=== PATIENT | male | born 1930 | race Caucasian/White ===

== ENCOUNTER → 2016-09-27 | Outpatient (CLI) | payer MEDICARE ==
[~2016-09-27] MED LIST: /HCTZ25TA PO; ASPI81TA83 PO; ASTEPRO; ATOR1TAB21 PO; CARTIA XT PO; CLIN150C OR; CRES5TAB PO; DIOV160T5 PO; LOSA100T36 PO; MULTTAB50 PO; NORV5TAB OR; OCEAN NASAL SPRAY; OMEP20TA7 PO; SING10TA31 PO; VICO5TAB PO; VITACAP31 PO; ZITH250T PO; ocuvite PO
--- NOTE | 2016-09-27 20:31 | REP ---
CHEST, PA AND LATERAL: 09/27/2016. Comparison: 08/02/2016. Clinical history: Gastroesophageal reflux disease without esophagitis, increased dyspnea for about a week. Findings: The two views show the lungs mildly hyperinflated but without pleural effusion or acute infiltrate. There is minor lateral pleural thickening. No apical scarring or pneumothorax. Heart not grossly enlarged. Aorta is calcified at the arch, tortuous without aneurysm. Airway intact. No infiltrate, nodule or mass in the lung chou. Degenerative changes in the AC and glenohumeral joints as well as the spine with demineralization, but no interval change. Impression: 1. No cardiomegaly, edema or effusion but tortuous calcified aorta. No acute cardiopulmonary change. Stable exam. Signed by Aly Neff MD 09/27/2016 08:34 P
== END ==
LOC: M ADAMS 17:26
PROVIDERS: ATTEND Internal Medicine Pulmonary Disease
DX: K21.9 Gastro-esophageal reflux disease without esophagitis (principal)

== ENCOUNTER 2017-04-09 10:50 | Emergency (ER) | payer MEDICARE ==
[~2017-04-09] VITALS: Ht 170.2 cm; Wt 77.1 kg
[2017-04-09] MEDS ORDERED: MAGN64TASA PO (11:03)
[2017-04-09] MEDS ORDERED: METF750T PO (11:03)
[2017-04-09] MEDS ORDERED: NS 1,000 ML IV SCH (11:38)
[2017-04-09] MEDS ORDERED: MORPHINE 2 MG/ML 1ML SYRINGE IV ONE ×2 (11:45→14:00)
[2017-04-09 11:54] LABS: BASO % 0.8 % (0.0-1.0); EOS # 0.2 K/mm3 (0.0-0.50); EOS % 4.5 % (0.0-3.0); LARGE UNSTAINED CELL # 0.2 K/mm3 (0.0-0.4); LARGE UNSTAINED CELL % 2.7 % (0.0-4.0); LYMPH # 1.2 K/mm3 (1.5-4.5); LYMPH % 19.1 % (24.0-44.0); MEAN CORPUSCULAR HGB CONC 34.6 g/dl (32.0-36.5); MEAN CORPUSCULAR VOLUME 89.6 fl (80.0-96.0); MONO # 0.4 K/mm3 (0.0-0.8); MONO % 6.2 % (0.0-5.0); NEUTROPHILS # 3.7 K/mm3 (1.8-7.7); NEUTROPHILS % 66.6 % (36.0-66.0); PLATELET COUNT, AUTOMATED 210 k/mm3 (150-450); RED CELL DISTRIBUTION WIDTH 12.4 % (11.5-14.5); WHITE BLOOD COUNT 5.6 K/mm3 (4.0-10.0)
[2017-04-09 11:55] LABS: INR 0.94
[2017-04-09] MEDS ORDERED: ONDANSETRON 4MG/2ML VIAL (J2405) IV ONE (12:00)
[2017-04-09 12:01] LABS: ALBUMIN 3.6 GM/DL (3.2-5.2); ALBUMIN/GLOBULIN RATIO 0.97 (1.00-1.93); ALKALINE PHOSPHATASE 60 U/L (45-117); ALT/SGPT 21 U/L (12-78); AMYLASE 71 U/L (25-115); ANION GAP 8 MEQ/L (8-16); AST/SGOT 18 U/L (15-37); BILIRUBIN,DIRECT < 0.1 MG/DL (0.0-0.2); BILIRUBIN,TOTAL 0.3 MG/DL (0.2-1.0); BLOOD UREA NITROGEN 20 MG/DL (7-18); CALCIUM LEVEL 8.8 MG/DL (8.8-10.2); CARBON DIOXIDE LEVEL 25 MEQ/L (21-32); CHLORIDE LEVEL 108 MEQ/L (98-107); CREATININE FOR GFR 1.16 MG/DL (0.70-1.30); GLOMERULAR FILTRATION RATE > 60.0 (>35); GLUCOSE, FASTING 104 MG/DL (83-110); SODIUM LEVEL 141 MEQ/L (136-145); TOTAL PROTEIN 7.3 GM/DL (6.4-8.2)
--- NOTE | 2017-04-09 12:15 | REP ---
Clinical: Pain. Technique: AP, lateral, bilateral oblique and coned-down views of the lumbosacral spine. Comparison: 04/19/2011. Findings: Age-related osteopenia and advanced multilevel degenerative disc osteophyte complexes are appreciated and appear progressive when compared to prior examination. There is no evidence for acute fracture / compression injury or subluxation. Findings include endplate sclerosis, disc space narrowing, osteophytosis and hypertrophic facet changes. Impression: Osteopenia and advanced multilevel degenerative changes. No acute fracture / compression injury or subluxation. Signed by Erasto Akers MD 04/09/2017 12:07 P
--- NOTE | 2017-04-09 12:17 | REP ---
Clinical: Pain. Technique: AP view of the pelvis with neutral and frog lateral views of the right hip. Findings: Osteopenia and moderate degenerative changes to the bilateral hips noted. Findings include joint space narrowing, subchondral sclerosis to the acetabular roof with associated spurring and osteophyte formation. No obvious acute fracture dislocation. Impression: Osteopenia and moderate degenerative changes. No acute fracture dislocation. Signed by Erasto Akers MD 04/09/2017 12:08 P
--- NOTE | 2017-04-09 12:17 | REP ---
Clinical: Lower chest and abdominal pain. Technique: PA and lateral. Comparison: 01/18/2015. Findings: Mediastinum and cardiac silhouette are within normal limits and stable. Lung chou demonstrate chronic interstitial changes primarily involving the mid to lower lung zones with scattered calcified granulomata. Findings are stable. No acute consolidation, effusion, or pneumothorax. Skeletal structures demonstrate age-related osteopenia and degenerative change. Impression: Chronic stable changes. No acute cardiopulmonary process appreciated. Signed by Erasto Akers MD 04/09/2017 12:09 P
[2017-04-09] MEDS ORDERED: ISOVUE-370 76% 100ML VIAL (Q9967) As Ordered ONE (13:08)
--- NOTE | 2017-04-09 14:05 | REP ---
Clinical: Right flank pain. Technique: Axial contrast enhanced images from the lung bases to the pubic symphysis using 100 ml Isovue 370 intravenous contrast material with coronal and sagittal re-formations. Comparison: 12/28/2015. Findings: Lung bases demonstrate chronic interstitial changes with subpleural fibrosis and bronchiectasis. Visualized portions of the heart and pericardium demonstrate atherosclerotic changes without cardiomegaly, aortic aneurysm or pericardial effusion. Liver, spleen, pancreas, bilateral adrenal glands are normal. The patient is status post cholecystectomy. The kidneys demonstrate bilateral cysts measuring up to 3 cm in the right kidney and 6.8 cm in left kidney. There is no hydroureteronephrosis, nephroureterolithiasis or perinephric stranding. The enteric system demonstrates diffuse colonic and sigmoid diverticulosis without obvious acute diverticulitis. Pelvis demonstrates normal bladder and age appropriate prostate/seminal vesicles. No free air. No free fluid. No significant adenopathy. Atherosclerotic changes to the aorta and vasculature noted without aneurysm or dissection. Musculoskeletal structures demonstrate age-related degenerative changes without focal osseous abnormality. Impression: 1. Bilateral renal cysts (left greater than right). 2. Diffuse diverticulosis without acute diverticulitis. 3. No acute abdominopelvic pathology appreciated. Specifically no free air, free fluid, or adenopathy and no mass lesion. 4. Chronic changes as described above. Signed by Erasto Akers MD 04/09/2017 01:57 P
[2017-04-09 14:16] VITALS: BP 192/82
== END 2017-04-09 14:45 | disposition home or self-care (01) ==
LOC: M ED 10:50
DX: R10.31 Right lower quadrant pain (principal); M54.9 Dorsalgia, unspecified; E11.9 Type 2 diabetes mellitus without complications; I10 Essential (primary) hypertension; E78.9 Disorder of lipoprotein metabolism, unspecified; J32.9 Chronic sinusitis, unspecified; Z79.899 Other long term (current) drug therapy; Z79.82 Long term (current) use of aspirin; Z79.84 Long term (current) use of oral hypoglycemic drugs; Z88.8 Allergy status to other drugs, medicaments and biological substances; Z88.5 Allergy status to narcotic agent; Z88.0 Allergy status to penicillin; Z88.2 Allergy status to sulfonamides; Z91.018 Allergy to other foods
CPT/HCPCS: 36415; 71020; 72110; 73502; 74177; 80048; 80076; 81001; 82150; 83690; 85025; 85610; 85730; 87040; 87086; 93041; 96361; 96374; 96375; 96376; 99284; J2405; Q9967

== ENCOUNTER → 2017-04-26 | Outpatient (REF) | payer MEDICARE ==
[~2017-04-26] MED LIST changes: +MAGN64TASA PO; +METF750T PO
== END ==
LOC: M LAB REF 17:44
PROVIDERS: ATTEND Surgery
DX: C44.629 Squamous cell carcinoma of skin of left upper limb, including shoulder (principal)

== ENCOUNTER → 2018-02-05 | Outpatient (CLI) | payer MEDICARE ==
[~2018-02-05] MED LIST changes: -/HCTZ25TA PO; -ASPI81TA83 PO; -ASTEPRO; -ATOR1TAB21 PO; -CARTIA XT PO; -CLIN150C OR; +CONRAY-43 43% 50ML VIAL (Q9960) As Ordered; -CRES5TAB PO; -DIOV160T5 PO; +LIDOCAINE 1% MDV 20ML VIAL As Ordered; -LOSA100T36 PO; -MAGN64TASA PO; -METF750T PO; -MULTTAB50 PO; -NORV5TAB OR; -OCEAN NASAL SPRAY; -OMEP20TA7 PO; -SING10TA31 PO; +TRIAMCINOLONE ACETONIDE SUSP 40 MG/ML VIAL (J3301) As Ordered; -VICO5TAB PO; -VITACAP31 PO; -ZITH250T PO; -ocuvite PO
== END ==
LOC: M RADPRO 10:36
DX: M16.0 Bilateral primary osteoarthritis of hip (principal)
CPT/HCPCS: 20610

== ENCOUNTER 2018-05-01 13:11 | Emergency (ER) | payer MEDICARE ==
[2018-05-01] MEDS: NORCO, ANEXSIA 5/325MG TABLET (HYDROcodone/ACETAMINOPHEN) PO (15:16)
== END 2018-05-01 15:30 | disposition home or self-care (01) ==
LOC: M ED 13:11
DX: S46.811A Strain of other muscles, fascia and tendons at shoulder and upper arm level, right arm, initial encounter (principal); W11.XXXA Fall on and from ladder, initial encounter; Y92.098 Other place in other non-institutional residence as the place of occurrence of the external cause; I10 Essential (primary) hypertension; E78.5 Hyperlipidemia, unspecified; E11.9 Type 2 diabetes mellitus without complications; Z88.8 Allergy status to other drugs, medicaments and biological substances; Z88.5 Allergy status to narcotic agent; Z88.0 Allergy status to penicillin; Z91.018 Allergy to other foods; Z88.2 Allergy status to sulfonamides; Z79.899 Other long term (current) drug therapy; Z79.82 Long term (current) use of aspirin; Z79.84 Long term (current) use of oral hypoglycemic drugs
CPT/HCPCS: 73030

== ENCOUNTER 2018-12-01 20:20 | Emergency (ER) | payer MEDICARE ==
[~2018-12-01] VITALS: Ht 167.6 cm; Wt 75.9 kg
[~2018-12-01 20:20] MED LIST changes: +ASPI81TA83 PO; +ASTEPRO; +ATOR1TAB21 PO; +CARTIA XT PO; +CLIN150C OR; -CONRAY-43 43% 50ML VIAL (Q9960) As Ordered; +CRES5TAB PO; +DIOV160T5 PO; +HYDR-3644 PO; +HYDR-3715 PO; -LIDOCAINE 1% MDV 20ML VIAL As Ordered; +LOSA100T36 PO; +MAGN64TASA PO; +METF750T PO; +MULTTAB50 PO; +NORV5TAB OR; +OCEAN NASAL SPRAY; +OMEP20TA7 PO; +SING10TA31 PO; -TRIAMCINOLONE ACETONIDE SUSP 40 MG/ML VIAL (J3301) As Ordered; +VICO5TAB PO; +VITACAP31 PO; +ZITH250T PO; +ocuvite PO
--- NOTE | 2018-12-01 22:01 | REPVR ---
EXAM: US Duplex Right Upper Extremity Veins, Limited EXAM DATE/TIME: 12/01/2018 9:29 PM CLINICAL HISTORY: 88 years old, male; Signs and symptoms; Edema, localized; Upper extremity, right; Prior surgery; Surgery date: <1 month; Surgery type: Shoulder replacement; Additional info: Swelling, recent surgery TECHNIQUE: Imaging protocol: Real-time Duplex ultrasound of the Right Upper Extremity with 2-D peck scale, color Doppler flow and spectral waveform analysis. Limited exam focused on the right upper extremity veins. COMPARISON: No relevant prior studies available. FINDINGS: Right deep veins: Unremarkable. Axillary and brachial veins are patent throughout without thrombus. Normal Doppler waveforms. Normal compressibility and/or augmentation response. Visualized internal jugular and subclavian veins are patent. A portion of the right subclavian vein was not visualized secondary to a dressing in place. Right superficial veins: Unremarkable. Visualized basilic veins are patent without thrombus. The right cephalic vein was obscured by a dressing. Soft tissues: Fluid is seen around the right shoulder. IMPRESSION: No evidence of deep vein thrombosis in the veins visualized in the right upper extremity. Electronically signed by: Neri Sinclair On 12/01/2018 22:00:51 PM
[2018-12-01] MEDS ORDERED: OXYC-517 (22:02)
[2018-12-01 22:30] VITALS: BP 142/62
== END 2018-12-01 22:41 | disposition home or self-care (01) ==
LOC: M ED 20:20
DX: R60.9 Edema, unspecified (principal); E11.9 Type 2 diabetes mellitus without complications; I10 Essential (primary) hypertension; Z79.899 Other long term (current) drug therapy; Z79.84 Long term (current) use of oral hypoglycemic drugs; Z79.82 Long term (current) use of aspirin; Z88.0 Allergy status to penicillin; Z88.1 Allergy status to other antibiotic agents; Z88.2 Allergy status to sulfonamides; Z88.8 Allergy status to other drugs, medicaments and biological substances; Z91.018 Allergy to other foods

== ENCOUNTER → 2019-03-17 | Outpatient (REF) | payer MEDICARE ==
[~2019-03-17] MED LIST changes: +OXYC-517
== END ==
LOC: M LAB REF 16:38
PROVIDERS: ATTEND Nurse Practitioner Family
DX: L08.9 Local infection of the skin and subcutaneous tissue, unspecified (principal)

== ENCOUNTER → 2019-04-13 | Outpatient (CLI) | payer MEDICARE ==
[~2019-04-13] MED LIST changes: -METF750T PO; +METF750T36 PO
--- NOTE | 2019-04-13 16:16 | REP ---
Clinical: Cough . Comparison: 04/09/2017 . Technique: PA and lateral. Findings: The mediastinum and cardiac silhouette are normal. The lung chou demonstrate chronic-appearing changes without acute consolidation, effusion, or pneumothorax. The skeletal structures are intact and normal. Impression: 1. No acute cardiopulmonary process. 2. Chronic-appearing changes. If the patient remains symptomatic consider chest CT for further investigation. Electronically Signed by Erasto Akers MD 04/13/2019 04:07 P
[2019-04-13 18:10] LABS: BASO # 0.1 10^3/uL (0.0-0.2); BASO % 0.3 % (0.0-1.0); EOS % 0.2 % (0.0-3.0); HEMATOCRIT 35.3 % (42.0-52.0); HEMOGLOBIN 11.4 g/dl (13.5-17.5); LYMPH # 1.8 10^3/uL (1.5-5.0); LYMPH % 10.4 % (24.0-44.0); MEAN CORPUSCULAR HEMOGLOBIN 29.2 pg (27.0-33.0); MEAN CORPUSCULAR HGB CONC 32.3 g/dl (32.0-36.5); MEAN CORPUSCULAR VOLUME 90.3 fl (80.0-96.0); MONO # 1.1 10^3/uL (0.0-0.8); MONO % 6.5 % (0.0-5.0); NEUTROPHILS # 14.3 10^3/uL (1.5-8.5); NEUTROPHILS % 82.1 % (36.0-66.0); PLATELET COUNT, AUTOMATED 253 10^3/uL (150-450); RED BLOOD COUNT 3.91 10^6/uL (4.30-6.10); WHITE BLOOD COUNT 17.4 10^3/uL (4.0-10.0)
[2019-04-13 18:15] LABS: ALBUMIN 3.3 GM/DL (3.2-5.2); BILIRUBIN,TOTAL 0.5 MG/DL (0.2-1.0); CALCIUM LEVEL 9.2 MG/DL (8.8-10.2); CREATININE FOR GFR 1.34 MG/DL (0.70-1.30); GLOMERULAR FILTRATION RATE 53.7 (>35); POTASSIUM SERUM 4.2 MEQ/L (3.5-5.1); TOTAL PROTEIN 6.3 GM/DL (6.4-8.2)
== END ==
LOC: M WUC 14:59
DX: R05 Cough (principal)

== ENCOUNTER → 2019-04-17 | Outpatient (CLI) | payer MEDICARE ==
[2019-04-17 16:50] LABS: BASO % 0.7 % (0.0-1.0); EOS # 0.2 10^3/uL (0.0-0.5); EOS % 3.9 % (0.0-3.0); HEMATOCRIT 35.3 % (42.0-52.0); HEMOGLOBIN 11.6 g/dl (13.5-17.5); LYMPH # 1.8 10^3/uL (1.5-5.0); LYMPH % 30.1 % (24.0-44.0); MEAN CORPUSCULAR HEMOGLOBIN 30.5 pg (27.0-33.0); MEAN CORPUSCULAR HGB CONC 32.9 g/dl (32.0-36.5); MEAN CORPUSCULAR VOLUME 92.9 fl (80.0-96.0); MONO # 0.6 10^3/uL (0.0-0.8); MONO % 10.3 % (0.0-5.0); NEUTROPHILS # 3.2 10^3/uL (1.5-8.5); NEUTROPHILS % 54.5 % (36.0-66.0); PLATELET COUNT, AUTOMATED 289 10^3/uL (150-450); WHITE BLOOD COUNT 5.9 10^3/uL (4.0-10.0)
[2019-04-17 16:56] LABS: ALBUMIN 3.4 GM/DL (3.2-5.2); ALT/SGPT 23 U/L (12-78); BILIRUBIN,TOTAL 0.4 MG/DL (0.2-1.0); BLOOD UREA NITROGEN 21 MG/DL (7-18); CALCIUM LEVEL 9.1 MG/DL (8.8-10.2); CARBON DIOXIDE LEVEL 25 MEQ/L (21-32); CHLORIDE LEVEL 103 MEQ/L (98-107); CREATININE FOR GFR 1.19 MG/DL (0.70-1.30); GLOMERULAR FILTRATION RATE > 60.0 (>35); GLUCOSE, FASTING 107 MG/DL (70-100); POTASSIUM SERUM 4.3 MEQ/L (3.5-5.1); SODIUM LEVEL 139 MEQ/L (136-145); TOTAL PROTEIN 6.8 GM/DL (6.4-8.2)
== END ==
LOC: M WUC 14:38
PROVIDERS: ATTEND Nurse Practitioner Family
DX: J01.90 Acute sinusitis, unspecified (principal)

== ENCOUNTER 2019-07-31 14:10 | Emergency (ER) | payer MEDICARE ==
[~2019-07-31] VITALS: Ht 157.5 cm; Wt 76.7 kg
[2019-07-31 15:14] LABS: BASO # 0.1 10^3/uL (0.0-0.2); BASO % 0.9 % (0.0-1.0); EOS # 0.6 10^3/uL (0.0-0.5); EOS % 8.3 % (0.0-3.0); HEMATOCRIT 35.4 % (42.0-52.0); HEMOGLOBIN 11.5 g/dl (13.5-17.5); LYMPH # 1.2 10^3/uL (1.5-5.0); LYMPH % 17.7 % (24.0-44.0); MEAN CORPUSCULAR HEMOGLOBIN 30.1 pg (27.0-33.0); MEAN CORPUSCULAR HGB CONC 32.5 g/dl (32.0-36.5); MEAN CORPUSCULAR VOLUME 92.7 fl (80.0-96.0); MONO % 14.5 % (0.0-5.0); NEUTROPHILS # 4.1 10^3/uL (1.5-8.5); NEUTROPHILS % 58.3 % (36.0-66.0); PLATELET COUNT, AUTOMATED 259 10^3/uL (150-450); RED BLOOD COUNT 3.82 10^6/uL (4.30-6.10)
--- NOTE | 2019-07-31 15:14 | REP ---
Clinical: Abdominal pain . Comparison: 04/13/2019 . Findings: The mediastinum and cardiac silhouette are stable and within normal limits for portable technique. The lung chou are clear without acute consolidation, effusion, or pneumothorax. Skeletal structures are intact. Impression: No acute cardiopulmonary process appreciated. Electronically Signed by Erasto Akers MD 07/31/2019 03:05 P
[2019-07-31 15:42] LABS: ALBUMIN 3.4 GM/DL (3.2-5.2); ALT/SGPT 20 U/L (12-78); BILIRUBIN,DIRECT < 0.1 MG/DL (0.0-0.2); BILIRUBIN,TOTAL 0.3 MG/DL (0.2-1.0); CK-MB VALUE MASS 2.1 NG/ML (<3.6); CPK CREATINE PHOSPHOKINASE 84 U/L (39-308); LIPASE 110 U/L (73-393); TOTAL PROTEIN 6.5 GM/DL (6.4-8.2); TROPONIN I < 0.02 NG/ML (< 0.10)
[2019-07-31] MEDS ORDERED: ANUS25SU PR (16:29)
[2019-07-31 16:45] VITALS: BP 174/80
--- NOTE | 2019-07-31 21:03 | ECGEPIP ---
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
== END 2019-07-31 16:48 | disposition home or self-care (01) ==
LOC: M ED 14:10
DX: K64.8 Other hemorrhoids (principal); E11.9 Type 2 diabetes mellitus without complications; I10 Essential (primary) hypertension; E78.5 Hyperlipidemia, unspecified; L21.9 Seborrheic dermatitis, unspecified; G47.33 Obstructive sleep apnea (adult) (pediatric); Z79.899 Other long term (current) drug therapy; Z79.84 Long term (current) use of oral hypoglycemic drugs; Z79.82 Long term (current) use of aspirin; Z88.0 Allergy status to penicillin; Z88.1 Allergy status to other antibiotic agents; Z88.2 Allergy status to sulfonamides; Z88.8 Allergy status to other drugs, medicaments and biological substances; Z91.018 Allergy to other foods

== ENCOUNTER → 2020-03-28 | Outpatient (CLI) | payer MEDICARE ==
[~2020-03-28] MED LIST changes: +ANUS25SU PR; +CLEO300C2 PO; +PRED20TA PO
[2020-03-28 15:27] LABS: BASO % 0.2 % (0.0-1.0); EOS # 0.3 10^3/uL (0.0-0.5); EOS % 3.9 % (0.0-3.0); HEMATOCRIT 37.2 % (42.0-52.0); HEMOGLOBIN 12.3 g/dl (13.5-17.5); LYMPH # 1.8 10^3/uL (1.5-5.0); LYMPH % 22.3 % (24.0-44.0); MEAN CORPUSCULAR HGB CONC 33.1 g/dl (32.0-36.5); MEAN CORPUSCULAR VOLUME 93.7 fl (80.0-96.0); MONO # 0.7 10^3/uL (0.0-0.8); NEUTROPHILS # 5.2 10^3/uL (1.5-8.5); NEUTROPHILS % 64.1 % (36.0-66.0); PLATELET COUNT, AUTOMATED 267 10^3/uL (150-450); RED BLOOD COUNT 3.97 10^6/uL (4.30-6.10); WHITE BLOOD COUNT 8.1 10^3/uL (4.0-10.0)
[2020-03-28 15:30] LABS: ALBUMIN 3.4 GM/DL (3.2-5.2); BILIRUBIN,TOTAL 0.4 MG/DL (0.2-1.0); CALCIUM LEVEL 8.7 MG/DL (8.8-10.2); CREATININE FOR GFR 1.27 MG/DL (0.70-1.30); POTASSIUM SERUM 4.1 MEQ/L (3.5-5.1); TOTAL PROTEIN 6.6 GM/DL (6.4-8.2)
--- NOTE | 2020-04-30 08:08 | REP ---
CHEST X-RAY: 3-VIEWS HISTORY: Cough and shortness of breath. COMPARISON: 07/31/2019. FINDINGS: The lungs are symmetrically aerated and free of infiltrate. Pleural angles are sharp. The aorta is tortuous and calcific. The heart is not felt to be enlarged. There are granulomatous calcifications on the right. Pulmonary vasculature is not increased. There are degenerative disk changes in the thoracic spine. IMPRESSION: No acute disease. MTDD
== END ==
LOC: M WUC 12:40
PROVIDERS: ATTEND Physician Assistant
DX: R05 Cough (principal); R06.02 Shortness of breath

== ENCOUNTER 2020-04-02 10:40 | Emergency (ER) | payer MEDICARE ==
[~2020-04-02] VITALS: Ht 167.6 cm; Wt 76.0 kg
[~2020-04-02 10:40] MED LIST changes: -CLEO300C2 PO; -PRED20TA PO
[2020-04-02 12:02] VITALS: O2SAT 96
[2020-04-02 12:11] LABS: BASO % 0.3 % (0.0-1.0); EOS # 0.2 10^3/uL (0.0-0.5); EOS % 1.6 % (0.0-3.0); HEMATOCRIT 37.2 % (42.0-52.0); HEMOGLOBIN 12.3 g/dl (13.5-17.5); LYMPH % 7.5 % (24.0-44.0); MEAN CORPUSCULAR HEMOGLOBIN 30.9 pg (27.0-33.0); MEAN CORPUSCULAR HGB CONC 33.1 g/dl (32.0-36.5); MEAN CORPUSCULAR VOLUME 93.5 fl (80.0-96.0); MONO # 1.1 10^3/uL (0.0-0.8); MONO % 7.7 % (0.0-5.0); NEUTROPHILS # 11.4 10^3/uL (1.5-8.5); NEUTROPHILS % 82.5 % (36.0-66.0); PLATELET COUNT, AUTOMATED 209 10^3/uL (150-450); RED BLOOD COUNT 3.98 10^6/uL (4.30-6.10); WHITE BLOOD COUNT 13.8 10^3/uL (4.0-10.0)
[2020-04-02 12:53] LABS: ALBUMIN 3.2 GM/DL (3.2-5.2); ALT/SGPT 25 U/L (12-78); BILIRUBIN,DIRECT 0.2 MG/DL (0.0-0.2); BILIRUBIN,TOTAL 0.8 MG/DL (0.2-1.0); BLOOD UREA NITROGEN 25 MG/DL (7-18); CALCIUM LEVEL 9.1 MG/DL (8.8-10.2); CARBON DIOXIDE LEVEL 29 MEQ/L (21-32); CHLORIDE LEVEL 105 MEQ/L (98-107); CK-MB VALUE MASS 1.2 NG/ML (<3.6); CPK CREATINE PHOSPHOKINASE 35 U/L (39-308); CREATININE FOR GFR 1.22 MG/DL (0.70-1.30); GLOMERULAR FILTRATION RATE 59.7 (>35); GLUCOSE, FASTING 113 MG/DL (70-100); MB/CK RELATIVE INDEX 3.43 (< OR =4); NT-PRO BNP 352 PG/ML (<450); POTASSIUM SERUM 4.2 MEQ/L (3.5-5.1); SODIUM LEVEL 140 MEQ/L (136-145); TOTAL PROTEIN 6.6 GM/DL (6.4-8.2); TROPONIN I < 0.02 NG/ML (< 0.10)
[2020-04-02] MEDS ORDERED: predniSONE 20 MG TAB PO ONE (13:45)
[2020-04-02 14:58] VITALS: BP 158/70
[2020-04-02] MEDS ORDERED: CLEO300C2 PO (15:05)
[2020-04-02] MEDS ORDERED: PRED20TA PO (15:06)
--- NOTE | 2020-04-20 13:48 | ECGEPIP ---
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
--- NOTE | 2020-04-20 16:49 | REP ---
CHEST X-RAY: HISTORY: Cough and shortness of breath. TECHNIQUE: PA and lateral COMPARISON: 03/28/20 FINDINGS: The mediastinum and cardiac silhouette are within normal limits and stable. Atherosclerotic changes to the thoracic aorta are again noted. The lung chou demonstrates stable chronic interstitial changes primarily involving the left base. No discrete focal consolidation, effusion or pneumothorax. Skeletal structures demonstrates age related osteopenia and degenerative changes along with right shoulder repair. IMPRESSION: Chronic stable changes. No focal consolidation or effusion. MTDD
== END 2020-04-02 15:16 | disposition home or self-care (01) ==
LOC: M ED 10:40
DX: J45.909 Unspecified asthma, uncomplicated (principal); J02.0 Streptococcal pharyngitis; E11.9 Type 2 diabetes mellitus without complications; I10 Essential (primary) hypertension; E78.5 Hyperlipidemia, unspecified; G47.33 Obstructive sleep apnea (adult) (pediatric); K21.9 Gastro-esophageal reflux disease without esophagitis; Z99.89 Dependence on other enabling machines and devices; Z79.899 Other long term (current) drug therapy; Z79.84 Long term (current) use of oral hypoglycemic drugs; Z79.82 Long term (current) use of aspirin; Z88.0 Allergy status to penicillin; Z88.1 Allergy status to other antibiotic agents; Z88.2 Allergy status to sulfonamides; Z88.5 Allergy status to narcotic agent; Z88.8 Allergy status to other drugs, medicaments and biological substances

== ENCOUNTER → 2020-04-28 | Outpatient (REF) | payer MEDICARE ==
[~2020-04-28] MED LIST changes: +CLEO300C2 PO; +PRED20TA PO
== END ==
LOC: M LAB REF 09:03
PROVIDERS: ATTEND Surgery
DX: C44.622 Squamous cell carcinoma of skin of right upper limb, including shoulder (principal)

== ENCOUNTER → 2020-07-28 | Outpatient (REF) | payer MEDICARE | LOC: M LAB REF 15:14 | PROVIDERS: ATTEND Physician Assistant | DX: M79.10 Myalgia, unspecified site (principal); R05 Cough; R68.83 Chills (without fever); R42 Dizziness and giddiness ==

== ENCOUNTER → 2020-10-05 | Outpatient (CLI) | payer MEDICARE ==
--- NOTE | 2020-10-05 15:02 | REP ---
INDICATION: FALL COMPARISON: None. TECHNIQUE: AP, lateral, and swimmers views. FINDINGS: Age-related osteopenia and associated degenerative changes include endplate sclerosis, scattered disc space narrowing, and osteophytosis noted. Alignment and kyphosis maintained. No evidence for acute fracture/compression injury or subluxation. IMPRESSION: No evidence for acute fracture/compression injury or subluxation. <Electronically signed by Erasto Akers > 10/05/20 [id number]
== END ==
LOC: M WUC 14:34
PROVIDERS: ATTEND Physician Assistant
DX: M54.6 Pain in thoracic spine (principal)

== ENCOUNTER 2020-10-12 13:08 | Emergency (ER) | payer MEDICARE ==
[~2020-10-12] VITALS: Ht 167.6 cm; Wt 76.4 kg
[2020-10-12] MEDS ORDERED: NITR0.4S14 (13:38)
--- NOTE | 2020-10-12 13:55 | REP ---
INDICATION: CHEST PAIN COMPARISON: 04/02/2020 TECHNIQUE: Portable AP view of the chest FINDINGS: The mediastinum and cardiac silhouette are stable and within normal limits for portable technique. The lung chou demonstrate chronic appearing changes without acute consolidation, effusion, or pneumothorax. Skeletal structures are intact. IMPRESSION: No acute cardiopulmonary process appreciated. <Electronically signed by Erasto Akers > 10/12/20 [id number]
[2020-10-12 14:08] LABS: BASO # 0.1 10^3/uL (0.0-0.2); BASO % 0.5 % (0.0-1.0); EOS # 0.3 10^3/uL (0.0-0.5); EOS % 3.5 % (0.0-3.0); HEMATOCRIT 39.7 % (42.0-52.0); HEMOGLOBIN 12.8 g/dl (13.5-17.5); LYMPH # 2.3 10^3/uL (1.5-5.0); LYMPH % 24.3 % (24.0-44.0); MEAN CORPUSCULAR HEMOGLOBIN 29.6 pg (27.0-33.0); MEAN CORPUSCULAR HGB CONC 32.2 g/dl (32.0-36.5); MEAN CORPUSCULAR VOLUME 91.7 fl (80.0-96.0); MONO # 0.9 10^3/uL (0.0-0.8); MONO % 9.1 % (2.0-8.0); NEUTROPHILS # 5.8 10^3/uL (1.5-8.5); NEUTROPHILS % 61.9 % (36.0-66.0); PLATELET COUNT, AUTOMATED 326 10^3/uL (150-450); RED BLOOD COUNT 4.33 10^6/uL (4.30-6.10); WHITE BLOOD COUNT 9.4 10^3/uL (4.0-10.0)
[2020-10-12 14:26] LABS: BLOOD UREA NITROGEN 24 MG/DL (7-18); CALCIUM LEVEL 9.1 MG/DL (8.8-10.2); CARBON DIOXIDE LEVEL 32 MEQ/L (21-32); CHLORIDE LEVEL 102 MEQ/L (98-107); CPK CREATINE PHOSPHOKINASE 28 U/L (39-308); CREATININE FOR GFR 1.27 MG/DL (0.70-1.30); GLOMERULAR FILTRATION RATE 56.8 (>35); GLUCOSE, FASTING 140 MG/DL (70-100); MB/CK RELATIVE INDEX 3.57 (< OR =4); POTASSIUM SERUM 3.6 MEQ/L (3.5-5.1); SODIUM LEVEL 139 MEQ/L (136-145); TROPONIN I < 0.02 NG/ML (< 0.10)
--- NOTE | 2020-10-12 14:42 | REP ---
INDICATION: left chest pain, fall COMPARISON: 09/28/2010 TECHNIQUE: Axial noncontrast images from the thoracic inlet to the upper abdomen with coronal and sagittal reformations. This CT examination was performed using the following dose reduction techniques: Automated exposure control, adjustment of mA and/or kv according to the patient's size, and use of iterative reconstruction technique. FINDINGS: The lung chou demonstrate chronic emphysematous changes along with early subpleural fibrosis, bronchiectasis, and few calcified granulomata. No acute consolidation/contusion, effusion, or pneumothorax. Mediastinum demonstrates atherosclerotic changes to the thoracic aorta and coronary arteries without aortic aneurysm or cardiomegaly. No pericardial effusion. No significant adenopathy. Surrounding musculoskeletal structures demonstrate age-related changes. No acute rib fracture or trauma/injury appreciated. Limited upper abdomen demonstrates normal bilateral adrenal glands along with bilateral renal cysts including incompletely imaged left exophytic cyst measuring greater than 7 cm. IMPRESSION: 1. Chronic emphysematous changes and scattered scarring along with prior granulomatous disease. No acute mediastinal or pleuroparenchymal process appreciated. 2. No evidence for acute rib fracture or trauma/injury. 3. Incompletely evaluated renal cysts. <Electronically signed by Erasto Akers > 10/12/20 [id number]
[2020-10-12] MEDS ORDERED: KETOROLAC 30 MG/ML 1ML VIAL IV ONE (15:10)
[2020-10-12] MEDS ORDERED: PRED20TA PO (16:09)
[2020-10-12 16:25] VITALS: BP 158/81
--- NOTE | 2020-10-13 00:31 | ECGEPIP ---
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
== END 2020-10-12 16:28 | disposition home or self-care (01) ==
LOC: M ED 13:08
DX: R09.1 Pleurisy (principal); E11.9 Type 2 diabetes mellitus without complications; I10 Essential (primary) hypertension; K21.9 Gastro-esophageal reflux disease without esophagitis; G47.33 Obstructive sleep apnea (adult) (pediatric); Z87.09 Personal history of other diseases of the respiratory system; Z99.89 Dependence on other enabling machines and devices; Z88.0 Allergy status to penicillin; Z88.1 Allergy status to other antibiotic agents; Z88.2 Allergy status to sulfonamides; Z88.8 Allergy status to other drugs, medicaments and biological substances; Z91.018 Allergy to other foods; Z79.899 Other long term (current) drug therapy; Z79.82 Long term (current) use of aspirin; Z79.84 Long term (current) use of oral hypoglycemic drugs
CPT/HCPCS: 71045; 71250; 80048; 82550; 82553; 84484; 85025; 93005; 93041; 94760; 96374; 99285; J1885

== ENCOUNTER → 2020-11-27 | Outpatient (CLI) | payer MEDICARE ==
[~2020-11-27] MED LIST changes: +NITR0.4S14
== END ==
LOC: M LABSMTC 09:30
PROVIDERS: ATTEND Internal Medicine
DX: Z11.52 Encounter for screening for COVID-19 (principal)

== ENCOUNTER → 2020-12-23 | Outpatient (REF) | payer MEDICARE ==
[2020-12-23 17:27] LABS: AMYLASE 74 U/L (25-115); LIPASE 227 U/L (73-393)
== END ==
LOC: M LAB REF 16:17
PROVIDERS: ATTEND Physician Assistant Medical
DX: R19.7 Diarrhea, unspecified (principal)

== ENCOUNTER → 2021-01-26 | Outpatient (CLI) | payer MEDICARE ==
[2021-01-26 15:52] LABS: BLOOD UREA NITROGEN 19 MG/DL (7-18); CREATININE FOR GFR 1.16 MG/DL (0.70-1.30); GLOMERULAR FILTRATION RATE > 60.0 (>35)
== END ==
LOC: M LAB 15:05
PROVIDERS: ATTEND Surgery Vascular Surgery
DX: Z01.818 Encounter for other preprocedural examination (principal); I65.22 Occlusion and stenosis of left carotid artery; D69.8 Other specified hemorrhagic conditions

== ENCOUNTER → 2021-01-27 | Outpatient (CLI) | payer MEDICARE ==
[~2021-01-27] MED LIST changes: +ISOVUE-370 76% 100ML VIAL As Ordered ONE
--- NOTE | 2021-01-27 14:16 | REPVR ---
PROCEDURE INFORMATION: Exam: CT Angiography Neck With Contrast Exam date and time: 01/27/2021 8:20 AM Age: 89 years old Clinical indication: Other: Occlusion and stenosis of bilateral carotid arteries TECHNIQUE: Imaging protocol: Computed tomography angiography of the neck with contrast. 3D rendering (Not supervised by radiologist): MIP and/or 3D reconstructed images were created by the technologist. Radiation optimization: All CT scans at this facility use at least one of these dose optimization techniques: automated exposure control; mA and/or kV adjustment per patient size (includes targeted exams where dose is matched to clinical indication); or iterative reconstruction. Contrast material: ISOVUE 370; Contrast volume: 75 ml; Contrast route: INTRAVENOUS (IV); COMPARISON: 1. CT Chest without contrast 10/12/2020 2:22 PM 2. CR PORTABLE CHEST X-RAY 10/12/2020 1:45 PM FINDINGS: Right common carotid artery: No stenosis. No dissection or occlusion. Right internal carotid artery: No stenosis of the extracranial segment. No dissection or occlusion. Right external carotid artery: No occlusion or stenosis of the origin. Left common carotid artery: No stenosis. No dissection or occlusion. Left internal carotid artery: There are calcific atherosclerotic changes of the left carotid bulb and proximal internal carotid artery. There is 50% stenosis at the origin of the left internal carotid artery. Left external carotid artery: No occlusion or stenosis of the origin. Right vertebral artery: No stenosis. No dissection or occlusion. Left vertebral artery: No stenosis. No dissection or occlusion. Soft tissues: Normal. No significant soft tissue swelling. Bones/joints: No acute fracture. 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 REFERENCES: NASCET CRITERIA. The degree of internal carotid artery stenosis is based on NASCET criteria. Normal is no stenosis. Mild is less than 50% stenosis. Moderate is 50-69% stenosis. Severe is 70% to 99% stenosis. Total occlusion is no detectable patent lumen. Electronically signed by: Fatou Altamirano On 01/27/2021 14:16:14 PM
== END ==
LOC: M RAD 07:47
PROVIDERS: ATTEND Surgery Vascular Surgery
DX: I65.23 Occlusion and stenosis of bilateral carotid arteries (principal)
CPT/HCPCS: 70498; Q9967

== ENCOUNTER → 2021-04-05 | Outpatient (REF) | payer MEDICARE ==
[~2021-04-05] MED LIST changes: -ISOVUE-370 76% 100ML VIAL As Ordered ONE
[2021-04-06 11:19] LABS: PERCENT SATURATION 43.3 % (19.7-50.0)
== END ==
LOC: M LAB REF 10:15
PROVIDERS: ATTEND Internal Medicine
DX: N18.9 Chronic kidney disease, unspecified (principal)

== ENCOUNTER → 2021-05-20 | Outpatient (CLI) | payer MEDICARE ==
--- NOTE | 2021-05-20 13:34 | REP ---
INDICATION: COUGH, DYSPNEA COMPARISON: 10/12/2020 TECHNIQUE: PA and lateral. FINDINGS: Evidence for sternotomy and CABG. Cardiac silhouette is normal. Lung chou demonstrate chronic appearing interstitial changes. No obvious focal consolidation, effusion, or pneumothorax. Skeletal structures demonstrate age-related osteopenia and degenerative changes along with right shoulder replacement. IMPRESSION: Chronic appearing changes. No acute consolidation or effusion identified. <Electronically signed by Erasto Akers > 05/20/21 [id number]
== END ==
LOC: M WUC 13:01
PROVIDERS: ATTEND Internal Medicine
DX: R05.9 Cough, unspecified (principal); R06.00 Dyspnea, unspecified; Z98.890 Other specified postprocedural states